=== PATIENT | male | born 1955 | race Caucasian/White ===

== ENCOUNTER → 2018-04-10 | Outpatient (CLI) | payer OTHER ==
[~2018-04-10] MED LIST: CELEXA 10 MG TA10 M1; FENOFIBRATE160 MG; LANTUS SUBQ; LISINOPRIL10 MG; MEDROLDOSEPACK PO; NIASPAN 500 MG500 M1; NORCO 5-325 TA1 EACH; NOVOLOG100 UNIT/1 SUBQ; PERCOCET 5-3251 EACH PO; PHENERGAN25 M2; PIOGLITAZONE-M1 EAC1; ZOCOR40 MG
== END ==
LOC: M.RAD 12:29
DX: M47.816 Spondylosis without myelopathy or radiculopathy, lumbar region (principal); M25.78 Osteophyte, vertebrae; I70.0 Atherosclerosis of aorta

== ENCOUNTER 2018-04-16 16:45 | Emergency (ER) | payer OTHER ==
[~2018-04-16] VITALS: Ht 182.9 cm; Wt 113.6 kg
[~2018-04-16 16:45] MED LIST changes: -MEDROLDOSEPACK PO; -NOVOLOG100 UNIT/1 SUBQ; -PERCOCET 5-3251 EACH PO
[2018-04-16] MEDS ORDERED: NOVOLOG100 UNIT/1 SUBQ (16:55)
[2018-04-16] MEDS ORDERED: PERCOCET 5-3251 EACH PO (17:21)
[2018-04-16] MEDS ORDERED: MEDROLDOSEPACK PO (17:21)
[2018-04-16 17:25] VITALS: BP 166/82
== END 2018-04-16 17:25 | disposition home or self-care (01) ==
LOC: M.ERS 16:45
DX: M53.3 Sacrococcygeal disorders, not elsewhere classified (principal); E11.9 Type 2 diabetes mellitus without complications